=== PATIENT | female | born 1960 | race American Indian/Alaskan Native ===

== ENCOUNTER 2018-02-02 07:33 | Day surgery (SDC) | payer MEDICARE ==
[2018-02-02] MEDS ORDERED: ECOTRIN PO ONE (07:58)
[2018-02-02] MEDS ORDERED: NACL 0.9% 500 ML 500 ML IV SCH (08:00)
[2018-02-02] MEDS ORDERED: XYLOCAINE 2% INFILTRATI ONE (08:34)
[2018-02-02] MEDS ORDERED: CALAN ONE (08:34)
[2018-02-02] MEDS ORDERED: HEPARIN/NS 5000 UNIT/500ML(CATH LAB) 1,000 ML IR ONE (08:34)
[2018-02-02] MEDS ORDERED: HEPARIN 10,000 UNITS/10 ML ONE (08:34)
[2018-02-02] MEDS ORDERED: NITROGLYCERIN SYRINGE 3 ML ONE (08:35)
[2018-02-02 08:46] LABS: Basophils % (Auto) 0.4 % (0.0-1.8); Eosinophils # (Auto) 0.1 K/mm3 (0.0-0.4); Eosinophils % (Auto) 0.8 % (0.0-4.3); Hemoglobin 13.6 gm/dl (10.1-14.3); Lymphocytes # (Auto) 1.5 K/mm3 (1.2-5.4); Mean Corpuscular HGB Conc 33 % (30-34); Mean Corpuscular Hemoglobin 31 pg (28-32); Mean Corpuscular Volume 94 fl (79-97); Monocytes # (Auto) 0.4 K/mm3 (0.0-0.8); Monocytes % (Auto) 5.7 % (0.0-7.3); Platelet Count 176 K/mm3 (140-440); Red Blood Count 4.38 M/mm3 (3.65-5.03); Red Cell Distribution Width 13.9 % (13.2-15.2)
[2018-02-02] MEDS ORDERED: VERSED ONE (08:49)
[2018-02-02 09:01] LABS: INR 0.81 (0.87-1.13)
[2018-02-02 09:04] LABS: BUN/Creatinine Ratio 21; Blood Urea Nitrogen 15 mg/dL (7-17); Calcium 9.3 mg/dL (8.4-10.2); Hemolysis Index 9
[2018-02-02] MEDS: SUBLIMAZE ONE ×2 (09:29→09:38)
--- NOTE | 2018-02-02 10:04 | Short Stay Summary ---
Short Stay Documentation Date of service: 02/02/18 - History H&P: obtained from office - Allergies and Medications Current Medications: Allergies shellfish derived Allergy (Verified 02/02/18 08:59) Anaphylaxis ibuprofen Adverse Reaction (Verified 02/02/18 08:59) Diarrhea Home Medications Medication Instructions Recorded Confirmed Last Taken Type Famotidine [Pepcid] 20 mg PO PRN 02/02/18 02/02/18 02/02/18 06:00 History 20mg Vit D3-Vit K/Berberine/Hops 1 tab PO DAILY 02/02/18 02/02/18 02/02/18 06:00 History [Ostera Tablet] 25mg diphenhydrAMINE [Benadryl CAP] 25 mg PO PRN PRN 02/02/18 02/02/18 02/01/18 History 25mg predniSONE [Deltasone] 20 mg PO BID 02/02/18 02/02/18 02/02/18 06:30 History 60mg Active Medications Sodium Chloride (Nacl 0.9% 500 Ml) 500 mls @ 50 mls/hr IV DIRECT ANNIE Stop: 02/02/18 17:59 Last Admin: 02/02/18 08:44 Dose: 50 mls/hr - Brief post op/procedure progress note Date of procedure: 02/02/18 Pre-op diagnosis: sycnope Post-op diagnosis: same Procedure: see report Anesthesia: local Estimated blood loss: none - Disposition Condition at discharge: Good Disposition: DC-01 TO HOME OR SELFCARE - Discharge Diagnoses (1) Abnormal cardiovascular stress test Status: Acute (2) Syncope Status: Acute Qualifiers: Syncope type: unspecified Qualified Code(s): R55 - Syncope and collapse Short Stay Discharge Plan Activity: advance as tolerated Diet: low fat, low cholesterol Wound: keep clean and dry Follow up with: ARIC BECERRA NP-C [Primary Care Provider] - 7 Days
--- NOTE | 2018-02-02 10:25 | Cardiac Catherization Report ---
CARDIAC CATHETERIZATION ORDERING PHYSICIAN: Edgardo Webber MD CLINICAL INFORMATION: A 57-year-old -[place] female with syncope and had a positive stress test with inferior defect, is here for left heart catheterization for definitive diagnosis. Moderate sedation under supervision was done with 1 mg of Versed and 100 mcg of fentanyl. The patient has a total sedation time of 20 minutes with start time 9:26 a.m., finish at 9:46 a.m. PROCEDURE DETAILS: The left heart catheterization was performed via the right radial artery, sterile technique, local anesthesia, 6-Vincentian radial sheath inserted. PROCEDURE FINDINGS: Left system engaged with JL3.5 catheter. Left main is large and patent, bifurcates into large LAD that is patent from proximally and distally. Diagonal 1 is a medium caliber vessel that is patent. Circumflex is a large caliber vessel that is patent. OM1 large caliber vessel that is, patent. RCA engaged with JR4 catheter, epyqzo-oc-anfrg caliber vessel, patent. PDA and PLV are indhg-lx-hqwsom caliber vessel, patent. LV gram done in KARLOS and VIEYRA view shows normal LV function, EF 55-60%. LVEDP of 20-25 mmHg, LV is 131/16, aortic is 132/80. No gradient across the aortic valve on pullback. 5-Vincentian catheters were taken over guidewire, 6-Vincentian radial sheath was discontinued. Radial dressing applied. No hematoma. No bleeding. SUMMARY: 1. Normal coronaries, right dominant system, large epicardial vessels. 2. Continue risk factor modification and discussed in detail with the patient. JOB# [id number] AMELIE/LUIS
[2018-02-02 12:31] VITALS: BP 134/86
== END 2018-02-02 07:34 | disposition home or self-care (01) ==
LOC: CATHLABREC 07:33
PROVIDERS: ATTEND Internal Medicine
DX: R07.89 Other chest pain (principal); I45.19 Other right bundle-branch block; E66.9 Obesity, unspecified; Z91.013 Allergy to seafood; Z79.01 Long term (current) use of anticoagulants; Z88.6 Allergy status to analgesic agent; Z68.38 Body mass index [BMI] 38.0-38.9, adult
CPT/HCPCS: 36415; 80048; 85025; 85610; 85730; 93005; 93010; 93458; 99156; 99157; C1894; J1644; J2250; J3010; J7040; Q9967